=== PATIENT | male | born 2000 | race Caucasian/White ===

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

== ENCOUNTER 2022-07-22 16:26 | Emergency (ER) | payer OTHER, MEDICAID | END 2022-07-22 16:56 | disposition home or self-care (01) | LOC: VM.ED 16:26 | DX: S61.011A Laceration without foreign body of right thumb without damage to nail, initial encounter (principal); W26.0XXA Contact with knife, initial encounter | CPT/HCPCS: 12001; 99282 ==

== ENCOUNTER 2023-04-28 19:36 | Emergency (ER) | payer OTHER, MEDICAID ==
[2023-04-28] MEDS ORDERED: Proparacaine 0.5% Ophth Soln 15 ML Bottle EYELF ONE (19:52)
[2023-04-28] MEDS ORDERED: Fluorescein 1 MG Ophth Strip EYERT ONE (20:11)
[2023-04-28] MEDS ORDERED: Take Home: Gentamicin 0.3% Ophth Soln 5 ML, 1 Bottle Pack EYEBOTH ONE (20:16)
== END 2023-04-28 20:31 | disposition home or self-care (01) ==
LOC: VM.ED 19:36
DX: T26.01XA Burn of right eyelid and periocular area, initial encounter (principal); S05.01XA Injury of conjunctiva and corneal abrasion without foreign body, right eye, initial encounter; X19.XXXA Contact with other heat and hot substances, initial encounter
CPT/HCPCS: 99283; A9270-GY; J3490

== ENCOUNTER 2025-05-01 17:36 | Emergency (ER) | payer OTHER | END 2025-05-01 19:03 | disposition home or self-care (01) | LOC: VM.ED 17:36 | DX: S83.92XA Sprain of unspecified site of left knee, initial encounter (principal); X50.0XXA Overexertion from strenuous movement or load, initial encounter; Y93.89 Activity, other specified | CPT/HCPCS: 73562-LT; 99283 ==

== ENCOUNTER 2025-05-06 21:18 | Emergency (ER) | payer OTHER ==
[2025-05-06 21:37] LABS: BASOPHILS ABSOLUTE AUTO 0.1 x10^3/uL (0.0-0.2); BASOPHILS PERCENT AUTO 0.6 % (0.2-1.2); EOSINOPHILS ABSOLUTE AUTO 0.1 x10^3/uL (0.0-0.5); EOSINOPHILS PERCENT AUTO 0.6 % (0.0-4.0); IMMATURE GRAN ABSOLUTE AUTO 0.03 x10^3/uL (0.00-0.07); IMMATURE GRAN PERCENT AUTO 0.30 % (0.00-0.43); LYMPHOCYTES ABSOLUTE AUTO 3.2 x10^3/uL (1.0-4.8); LYMPHOCYTES PERCENT AUTO 29.3 % (25.0-50.0); MONOCYTES ABSOLUTE AUTO 0.8 x10^3/uL (0.0-0.8); MONOCYTES PERCENT AUTO 7.7 % (2.0-11.0); NEUTROPHILS ABSOLUTE AUTO 6.7 x10^3/uL (1.8-7.7); NEUTROPHILS PERCENT AUTO 61.5 % (50.0-80.0); PLATELET COUNT,PLT 328 x10^3/uL (130-400); RED BLOOD CELL COUNT 5.23 x10^6/uL (4.5-6.0); WHITE BLOOD CELL COUNT,WBC 10.9 x10^3/uL (4.0-10.0)
[2025-05-06 21:51] LABS: A/G RATIO 1.37; ALANINE AMINOTRANSFERASE,ALT 32 U/L (16-63); ASPARTATE AMNIOTRANSFERASE,AST 26 U/L (15-37); BILIRUBIN TOTAL 0.5 mg/dL (0.2-1.0); BLOOD UREA NITROGEN,BUN 10 mg/dL (7-18); CARBON DIOXIDE,CO2 26 mmol/L (21-32); CHLORIDE,CL 103 mmol/L (98-107); CREATININE 1.0 mg/dL (0.70-1.30); GLUCOSE RANDOM 101 mg/dL (70-99); POTASSIUM,K 3.4 mmol/L (3.5-5.1); PROTEIN TOTAL,TP 7.1 g/dL (6.4-8.2); SODIUM,NA 141 mmol/L (136-145)
[2025-05-06 21:52] LABS: ESTIMATED GFR 109 mL/min (>=60)
[2025-05-06] MEDS: Diphtheria,Pertussis(Acell),Tetanus Vaccine 0.5 ML Syringe IM ONE (23:28)
== END 2025-05-07 00:12 | disposition home or self-care (01) ==
LOC: VM.ED 21:18 → SUPCPDRO 21:18 → VM.ED 05-07 00:12
DX: S61.217A Laceration without foreign body of left little finger without damage to nail, initial encounter (principal); S91.332A Puncture wound without foreign body, left foot, initial encounter; Z23 Encounter for immunization; S80.211A Abrasion, right knee, initial encounter; V29.99XA Rider (driver) (passenger) of other motorcycle injured in unspecified traffic accident, initial encounter; Y92.410 Unspecified street and highway as the place of occurrence of the external cause
CPT/HCPCS: 12002; 70450; 72125; 73140; 73630; 80053; 85025; 90471; 90715; 96374; 99284; J0690; J2003; 99283